=== PATIENT | female | born 1955 | race Caucasian/White ===

== ENCOUNTER → 2019-03-20 | Day surgery (SDC) | payer OTHER ==
[2019-03-15 09:26] LABS: Basophils # (auto) 0 uL; Eosinophils # (auto) 0 uL; Eosinophils % (auto) 0.8 % (0.0-7.0); Hematocrit 41.7 % (36.0-46.0); Hemoglobin 14.4 g/dL (12.2-16.2); Lymphocytes # (auto) 1.7 uL; Monocytes # (auto) 0.5 uL; White Blood Cell 5.9 10^3/uL (4.4-10.8)
[2019-03-15 09:27] LABS: Basophils % (auto) 0.4 % (0.0-2.0); Lymphocytes % (auto) 29.8 % (10.0-50.0); Mean Corpuscular Hemoglobin 34.4 pg (28.0-32.0); Mean Corpuscular Hgb Conc. 34.4 g/dL (32.0-36.0); Mean Corpuscular Volume 99.8 fL (80.0-100.0); Monocytes % (auto) 8.5 % (0.0-12.0); Neutrophils # (auto) 3.5 uL; Neutrophils % (auto) 60.5 % (37.0-80.0); Nucleated Red Blood Cells % 0.1 %; Platelet Count (auto) 263 10^3/uL (140-450); Red Blood Cells 4.18 10^6/uL (4.0-5.20); Red Cell Distribution Width 13.1 % (11.8-14.3)
[2019-03-15 09:45] LABS: INR 1.01 (0.9-1.15); Partial Thromboplastin Time 29.1 sec (23.64-32.05)
[~2019-03-20] VITALS: Ht 152.4 cm; Wt 50.3 kg
[~2019-03-20] MED LIST: ACYC-43 OR; MIDAZOLAM HCL 5 MG/ML-1ML VIAL ONE; NAP500T PO; SODIUM CHLORIDE LOCK 10 ML ONE; diphenhdrAMINE HCL 50 MG/1 ML VL ONE; fentaNYL CITRATE 100 MCG/2 ML VL ONE
[2019-03-20] MEDS: fentaNYL CITRATE 100 MCG/2 ML VL ONE ×3 (11:48→11:56)
[2019-03-20] MEDS: MIDAZOLAM HCL 5 MG/ML-1ML VIAL ONE ×3 (11:48→11:56)
[2019-03-20 12:40] VITALS: BP 120/57
== END | disposition home or self-care (01) ==
LOC: SUR 11:16
PROVIDERS: ATTEND Internal Medicine Gastroenterology
DX: K64.1 Second degree hemorrhoids (principal); K92.1 Melena; Z88.8 Allergy status to other drugs, medicaments and biological substances; Z98.890 Other specified postprocedural states
CPT/HCPCS: 36415; 45378; 85025; 85610; 85730; J1200; J2250; J3010; J7030; 99152